=== PATIENT | male | born 1945 | race Caucasian/White ===

== ENCOUNTER 2016-10-21 22:23 | Emergency (ER) | payer OTHER ==
[~2016-10-21] VITALS: Ht 20.3 cm; Wt 85.9 kg
[~2016-10-21 22:23] MED LIST: ASPI81CH CHEW; ENAL2.5T PO; MAGO400T2 PO; METF500T PO; METO25TA3 PO; PRAV40TA2 PO; PROT40TA PO; TAMS0.4C4 PO; ZOFR8TAB PO
[2016-10-21 22:29] VITALS: BP 171/86; PULSE 54; RESP 16; TEMP 98.4; O2SAT 94
--- NOTE | 2016-10-21 22:34 | PD ---
Physical Exam Time Seen by Provider: 22:32 Narrative 71yo M sent by [place] [facility] for possible blood clot in Left leg. Left leg pain x 1 weeks. Denies paraesthesia, loss of sensation to left foot. Patient seen in triage. VS reviewed. Awaiting bed placement. Data Data Last Documented VS Vital Signs Date Time Temp Pulse Resp B/P (MAP) Pulse Ox O2 Delivery O2 Flow Rate FiO2 10/21/16 22:29 98.4 54 16 171/86 (114) 94 Room Air MDM Supervised Visit with ESTEFANI: Wanda Olivier Oct 21, 2016 22:34
[2016-10-21 22:47] VITALS: BP 158/75; PULSE 62; O2SAT 94
--- NOTE | 2016-10-21 23:00 | PD ---
HPI Chief Complaint: Medical Clearance Time Seen by Provider: 22:46 Travel History International Travel<30 days: No Contact w/Intl Traveler<30days: No Traveled to known affect area: No History of Present Illness HPI The patient is a 71 year-old male who presents emergency department for left lower extremity pain and edema. The patient states he has a history of left lower extremity swelling intermittently for the last year. The patient states he had an infected AAA graft and had to go to [place] to have an operative repair. The patient states he removed a vein from the left lower extremity at that time and he now notes intermittent swelling of the left lower extremity. The patient denies any previous history of DVT or pulmonary embolism. The patient denies any recent prolonged travel, hospitalizations, or surgeries in the last 3 months. No edema is intermittent, worse with standing all day, and slightly alleviated in the morning. He also complains of occasional numbness or radiates down the left leg that is worse with certain positions. The patient's symptoms are moderate, possibly exacerbated by previous vein harvesting from the left lower extremity, and slightly alleviated with elevation. The patient was seen at [facility] emergency department and referred to [facility] for an ultrasound of the left lower extremity to rule out DVT. PFS Past Medical History AAA: Yes Cardiovascular Problems: Yes High Cholesterol: Yes Diabetes: Yes Patient Takes Glucophage: Yes Diminished Hearing: No GERD: Yes Hypertension: Yes Immunizations Current: No Tetanus Vaccination: Never Vaccinated Past Surgical History Abdominal Aneurysm Repair: Yes Appendectomy: Yes Cholecystectomy: Yes Coronary Artery Bypass Graft: Yes Coronary Stent: Yes Joint Replacement: Yes (RT SHOULDER) Other Surgery: Yes (aortic sx coronary bypass) Social History Alcohol Use: No Tobacco Use: No Substance Use: No Allergies-Medications (Allergen,Severity, Reaction): Coded Allergies: No Known Allergies (Unverified , 10/21/16) Reported Meds & Prescriptions Reported Meds & Active Scripts Active Reported Aspirin 81 Mg Chew 81 Mg CHEW DAILY Protonix (Pantoprazole Sodium) 40 Mg Tab 40 Mg PO DAILY Zofran (Ondansetron HCl) 8 Mg Tab 8 Mg PO TID Magox 400 (Magnesium Oxide) 400 Mg Tablet 400 Mg PO DAILY Tamsulosin (Tamsulosin HCl) 0.4 Mg Cap 0.4 Mg PO HS Metoprolol Tartrate 25 Mg Tab 25 Mg PO BID Enalapril (Enalapril Maleate) 2.5 Mg Tab 2.5 Mg PO DAILY Pravastatin 40 Mg Tab 40 Mg PO DAILY Metformin (Metformin HCl) 500 Mg Tab 500 Mg PO DAILY With a meal Review of Systems Except as stated in HPI: all other systems reviewed are Neg General / Constitutional: No: Fever Cardiovascular: No: Chest Pain or Discomfort Respiratory: No: Shortness of Breath Gastrointestinal: No: Nausea Musculoskeletal: Positive: Edema, Pain Neurologic: No: Focal Abnormalities Physical Exam Narrative GENERAL: Awake, alert, pleasant 71-year-old male who appears his stated age and is in no acute respiratory distress. SKIN: Focused skin assessment warm/dry. HEAD: Atraumatic. Normocephalic. EYES: Pupils equal and round. No scleral icterus. No injection or drainage. ENT: No nasal bleeding or discharge. Mucous membranes pink and moist. NECK: Trachea midline. No JVD. GASTROINTESTINAL: Abdomen soft, non-tender, nondistended. Midline surgical scar noted. MUSCULOSKELETAL: Well-healed scar medial aspect of the left thigh. Mild pitting edema left lower extremity from the knee inferiorly when compared to the right. Mild venous stasis changes noted. Positive left dorsalis pedal pulse. Inspection of the foot and toes reveals no obvious ulceration or cellulitis. NEUROLOGICAL: Awake and alert. No obvious cranial nerve deficits. Motor grossly within normal limits. Normal speech. PSYCHIATRIC: Appropriate mood and affect; insight and judgment normal. Data Data Last Documented VS Vital Signs Date Time Temp Pulse Resp B/P (MAP) Pulse Ox O2 Delivery O2 Flow Rate FiO2 10/21/16 22:47 62 158/75 (102) 94 10/21/16 22:29 98.4 16 Room Air Orders Orders Us Leg Venous Doppler (10/21/16 ) [facility] Medical Decision Making Medical Screen Exam Complete: Yes Emergency Medical Condition: Yes Medical Record Reviewed: Yes Interpretation(s) Last Impressions Lower Extremity Ultrasound 10/21/16 0000 Signed Impressions: Service Date/Time: September 23:11 - CONCLUSION: Normal examination. Elver Cartwright MD Differential Diagnosis Differential diagnosis includes DVT, dependent edema, chronic venous stasis changes, volume overload, cellulitis. Narrative Course An ultrasound of the left lower extremity was ordered to evaluate for possible DVT. Ultrasound of the left lower extremity was negative. The patient most likely has dependent edema secondary to previous vein removal from the left lower extremity. The patient is advised to wear KEO hose, elevate, and follow- up with his primary physician. The patient will be provided a copy of his ultrasound results at discharge. Diagnosis Primary Impression: Leg edema, left Patient Instructions: General Instructions Additional Instructions: Please provide the patient a copy of his ultrasound results at discharge. Elevate the leg. KEO hose as needed. Follow-up with your primary physician. Med/Other Pt SpecificInfo: No Change to Meds Disposition: 01 DISCHARGE HOME Condition: Stable Jose Muse MD Oct 21, 2016 23:00
--- NOTE | 2016-10-21 23:37 | RADRPT ---
EXAM DATE/TIME: 10/21/2016 23:11 [place] COMPARISON: No previous studies available for comparison. INDICATIONS : Left leg swelling. MEDICAL HISTORY : Hypercholesterolemia. Hypertension. Gastroesophageal reflux disease. Glasses. Abdominal aortic ane urysm. Diabetes. SURGICAL HISTORY : CABG Abdominal aortic aneurysm repair. Appendectomy. Cholecystectomy. Right shoulder replacement. ENCOUNTER: Initial ACUITY: 1 day PAIN SCORE: 2/10 LOCATION: Left leg. TECHNIQUE: Venous ultrasound of the leg was performed from the inguinal ligament to the proximal calf. Real-mike e, color Doppler and spectral tracing, compression and augmentation techniques were used. FINDINGS: There is normal compressibility of the deep venous system from the inguinal region to the proximal ca lf. No echogenic clot is seen in the lumen of the common femoral, femoral, popliteal, and posterior tibial veins. There is a normal response of the venous system to proximal and distal augmentation an d respiration. CONCLUSION: Normal examination. Elver Cartwright MD on October 21, 2016 at 23:36 Board Certified Radiologist. This report was verified electronically.
== END 2016-10-22 00:24 | disposition home or self-care (01) ==
LOC: NEPC 22:23
DX: R60.0 Localized edema (principal); R20.0 Anesthesia of skin; E78.00 Pure hypercholesterolemia, unspecified; E11.9 Type 2 diabetes mellitus without complications; K21.9 Gastro-esophageal reflux disease without esophagitis; I10 Essential (primary) hypertension; Z79.82 Long term (current) use of aspirin; Z79.899 Other long term (current) drug therapy
CPT/HCPCS: 93971; 99284; 99285